=== PATIENT | male | born 2000 | race Caucasian/White ===

== ENCOUNTER 2022-05-24 00:45 | Emergency (ER) | payer BC, OTHER ==
[2022-05-24 01:28] LABS: ESTIMATED GFR 81 mL/min (>60)
[2022-05-24 03:17] VITALS: BP 131/74; PULSE 62
== END 2022-05-24 02:10 | disposition home or self-care (01) ==
LOC: FB.ED 00:45
DX: Q23.1 Congenital insufficiency of aortic valve (principal); E87.6 Hypokalemia; R25.1 Tremor, unspecified; F41.9 Anxiety disorder, unspecified; Z20.822 Contact with and (suspected) exposure to COVID-19; Z79.899 Other long term (current) drug therapy
CPT/HCPCS: 36415; 80053; 83605; 83735; 85025; 86140; 87040; 93005; 99284; U0002